=== PATIENT | male | born 1970 | race Caucasian/White ===

== ENCOUNTER 2024-06-01 17:47 | Emergency (ER) | payer OTHER ==
[2024-06-01 18:19] VITALS: RESP 20; BMI 38.0
[2024-06-01 19:01] LABS: BASO % 0.6 % (0-2.0); EOS % 1.1 % (0-4.5); HEMATOCRIT 47.2 % (35.4-49); HEMOGLOBIN 15.5 GM/dL (11.7-16.9); LYMPH % 19.5 % (8-40); MCH 28.8 pg (25.7-33.7); MCHC 32.8 g/dl (32.0-35.9); MEAN CELL VOLUME 87.9 fl (80-96); MEAN PLT VOLUME 8.4 fl (7.5-11.1); MONO % 3.9 % (3.8-10.2); NEUT % 74.9 % (42.8-82.8); PLATELET COUNT 197 10^3/uL (134-434); RBC 5.37 M/mm3 (4.00-5.60); RDW 14.9 % (11.9-15.9); WHITE BLOOD COUNT 8.2 K/mm3 (4.0-10.0)
[2024-06-01 19:18] LABS: INR 1.09 (0.83-1.09); PROTHROMBIN TIME (PATIENT) 12.5 SEC (9.7-13.0)
[2024-06-01 19:21] LABS: ACTIVATED PTT 37.9 SECONDS (25.2-36.5)
[2024-06-01 20:00] LABS: CHLORIDE 103 mmol/L (98-107); POTASSIUM 4.4 mmol/L (3.5-5.1); SODIUM 135 mmol/L (136-145)
[2024-06-01 20:02] LABS: ALBUMIN 3.3 g/dl (3.4-5.0); ANION GAP 7 mmol/L (4-13); BLOOD UREA NITROGEN 12.3 mg/dL (7-18); CALCIUM 9.2 mg/dL (8.5-10.1); CO2 25 mmol/L (21-32); MAGNESIUM 1.7 mg/dL (1.8-2.4)
[2024-06-01 20:05] LABS: SGPT/ALT 21 U/L (13-61)
[2024-06-01 20:06] LABS: CREATININE 0.9 mg/dL (0.55-1.3); SGOT/AST 10 U/L (15-37)
[2024-06-01 20:07] LABS: BILIRUBIN,TOTAL 0.2 mg/dL (0.2-1); TOT PROT 7.3 g/dl (6.4-8.2)
[2024-06-01 20:08] LABS: ALK PHOS 98 U/L (45-117)
[2024-06-01 20:30] LABS: GLUCOSE,RANDOM 415 mg/dL (74-106)
[2024-06-01 21:03] LABS: HIV INTERPRETATION NEGATIVE (NEGATIVE)
[2024-06-01] MEDS: SODIUM CHLORIDE 0.9% 500 ML INFUS.BAG IV ONE (21:05)
[2024-06-01] MEDS: INSULIN REGULAR HUMAN 100 UNITS/ML *VIAL IVPUSH ONE (21:08)
[2024-06-01] MEDS ORDERED: INSULIN REGULAR HUMAN 100 UNITS/ML *VIAL ONE (21:08)
[2024-06-01 21:14] LABS: PH,URINE 5.5 (5.0-8.0); URINE APPEARANCE CLEAR; URINE BILIRUBIN NEGATIVE (NEGATIVE); URINE COLOR YELLOW; URINE GLUCOSE (UA) 3+ (NEGATIVE); URINE KETONE 1+ (NEGATIVE); URINE LEUK ESTERASE NEGATIVE (NEGATIVE); URINE NITRITE NEGATIVE (NEGATIVE); URINE PROTEIN NEGATIVE (NEGATIVE); URINE UROBILINOGEN 0.2 mg/dL (0.2-1.0)
[2024-06-01 22:04] VITALS: BP 130/69; PULSE 82; TEMP 98.7
== END 2024-06-02 01:55 | disposition home or self-care (01) ==
LOC: JER 17:47
PROC: 3E033GC Introduction of Other Therapeutic Substance into Peripheral Vein, Percutaneous Approach (ICD-10-PCS; principal; 2024-06-01)
DX: K42.9 Umbilical hernia without obstruction or gangrene (principal)
CPT/HCPCS: 36415; 74177-TC; 80053; 81003; 82962; 83735; 84484; 85025; 85610; 85730; 86803; 87077; 87086; 87389; 93005; 93010; 96374; 99285-25; Q9967

== ENCOUNTER 2024-06-02 02:40 | Emergency (ER) | payer OTHER ==
[2024-06-02 02:46] VITALS: RESP 18; BMI 38.0
[2024-06-02 10:39] VITALS: BP 111/81; PULSE 78; TEMP 98.6
== END 2024-06-02 10:59 | disposition home or self-care (01) ==
LOC: JER 02:40
DX: K42.9 Umbilical hernia without obstruction or gangrene (principal)
CPT/HCPCS: 99283-25

== ENCOUNTER 2024-10-30 11:18 | Inpatient (IN) | payer OTHER ==
[2024-10-30 11:33] VITALS: BMI 36.9
[2024-10-30] MEDS ORDERED: ACETAMINOPHEN INJECTION 100 ML ONE (12:25)
[2024-10-30] MEDS: ACETAMINOPHEN 1000 MG/100 ML BAG IVPB ONE (12:25)
[2024-10-30 12:27] LABS: ABSOLUTE IMMATURE GRANULOCYTES 0.06 x10^3/uL (0.0-0.031); BASOPHILS # 0.03 x10^3/uL (0.01-0.08); EOSINOPHIL % 1.2 % (0.8-7.0); EOSINOPHILS # 0.07 x10^3/uL (0.04-0.54); HEMATOCRIT 48.7 % (40.1-51.0); MCHC 32.9 g/dl (32.3-36.5); MEAN CELL VOLUME 88.9 fl (79.0-92.2); MEAN PLT VOLUME 9.9 fl (9.4-12.4); MONOCYTE # 0.32 x10^3/uL (0.30-0.82); MONOCYTE % 5.4 % (5.3-12.2); PLATELET COUNT 163 x10^3/uL (163-337)
[2024-10-30 12:34] LABS: INR 1.45 (0.83-1.09)
[2024-10-30 12:36] LABS: ACTIVATED PTT 43.2 SECONDS (25.2-36.5)
[2024-10-30 13:01] LABS: POTASSIUM 4.2 mmol/L (3.5-5.1)
[2024-10-30 13:03] LABS: CALCIUM 9.2 mg/dL (8.5-10.1)
[2024-10-30 13:04] LABS: ALBUMIN 3.4 g/dl (3.4-5.0)
[2024-10-30 13:05] LABS: BLOOD UREA NITROGEN 14.6 mg/dL (7-18)
[2024-10-30 13:07] LABS: CREATININE 0.8 mg/dL (0.55-1.3)
[2024-10-30 13:08] LABS: TOT PROT 6.9 g/dl (6.4-8.2)
[2024-10-30 13:10] LABS: BILIRUBIN,TOTAL 0.5 mg/dL (0.2-1)
[2024-10-30] MEDS: predniSONE 20 MG TABLET (UD) PO ONE (17:18)
[2024-10-30] MEDS ORDERED: predniSONE 20 MG TABLET (UD) ONE (17:20)
[2024-10-30 18:15] LABS: EPI CELLS 7 /uL (0-25.1); HYALINE CASTS 0 /uL (0-3.1); PH,URINE 6.5 (5.0-8.0); URINE APPEARANCE CLEAR; URINE BACTERIA 47 /uL (0-1359); URINE BILIRUBIN NEGATIVE (NEGATIVE); URINE COLOR YELLOW; URINE GLUCOSE (UA) NEGATIVE (NEGATIVE); URINE KETONE TRACE (NEGATIVE); URINE LEUK ESTERASE 1+ (NEGATIVE); URINE NITRITE NEGATIVE (NEGATIVE); URINE PROTEIN 1+ (NEGATIVE); URINE RBC 13 /uL (0-23.9); URINE WBC 45 /uL (0-25.8)
[2024-10-30] MEDS ORDERED: LABETALOL HCL 20 MG/4 ML VIAL IVPUSH PRN ×2 (19:10→19:15)
[2024-10-30] MEDS: levETIRAcetam 500 MG TABLET (FP) PO SCH (21:24)
[2024-10-30] MEDS: INSULIN ASPART SLIDING SCALE (NOVOLOG) 1 VIAL SQ SCH (21:27)
[2024-10-30] MEDS: ASPIRIN 325 MG ENTERIC COATED TABLET (FP) PO ONE (21:43)
[2024-10-30] MEDS ORDERED: APIXABAN 5 MG TABLET PO SCH (22:00)
[2024-10-31] MEDS: INSULIN GLARGINE (LANTUS) 100 UNITS/ML UNITS SQ SCH (06:15)
[2024-10-31 07:50] LABS: HEMATOCRIT 48.9 % (40.1-51.0); MCHC 32.7 g/dl (32.3-36.5); MEAN CELL VOLUME 88.1 fl (79.0-92.2); MEAN PLT VOLUME 10.2 fl (9.4-12.4); PLATELET COUNT 192 x10^3/uL (163-337); RDW 12.9 % (12.2-16.1)
[2024-10-31 08:03] LABS: POTASSIUM 3.9 mmol/L (3.5-5.1)
[2024-10-31 08:05] LABS: CALCIUM 9.2 mg/dL (8.5-10.1)
[2024-10-31 08:06] LABS: ALBUMIN 3.5 g/dl (3.4-5.0); MAGNESIUM 1.7 mg/dL (1.8-2.4)
[2024-10-31 08:09] LABS: CREATININE 0.8 mg/dL (0.55-1.3); PHOSPHOROUS 2.6 mg/dL (2.5-4.9)
[2024-10-31 08:10] LABS: BILIRUBIN,TOTAL 0.6 mg/dL (0.2-1)
[2024-10-31] MEDS: ENOXAPARIN NA (PORCINE) 40 MG/0.4 ML DISP.SYRIN SQ SCH (09:44)
[2024-10-31] MEDS: ASPIRIN 81 MG CHEWABLE TABLETS PO SCH (09:45)
[2024-10-31] MEDS: predniSONE 20 MG TABLET (UD) PO SCH (09:45)
[2024-10-31] MEDS: MAGNESIUM 1GM/D5W - 1 GM/100 ML IVPB IVPB ONE (09:46)
[2024-10-31] MEDS: LOSARTAN POTASSIUM 25 MG TABLET PO SCH (09:46)
[2024-10-31] MEDS: AMIODARONE HCL 200 MG TABLET PO SCH (09:46)
[2024-10-31] MEDS ORDERED: PATIENT'S OWN MEDICATION (NON-FORMULARY) (Insulin Glargine,Hum.Rec.Anlog [Lantus Solostar] SQ SCH (10:00)
[2024-10-31] MEDS ORDERED: EZETIMIBE 10 MG TABLET (FP) PO SCH (10:45)
[2024-10-31] MEDS: ATORVASTATIN CA 80 MG TABLET (FP) PO SCH (21:05)
[2024-10-31] MEDS: APIXABAN 5 MG TABLET PO SCH (21:05)
[2024-10-31] MEDS: EZETIMIBE 10 MG TABLET (FP) PO SCH (21:05)
[2024-11-01 01:13] VITALS: RESP 18
[2024-11-01 08:00] LABS: HEMATOCRIT 49.8 % (40.1-51.0); HEMOGLOBIN 16.2 g/dL (13.7-17.5); MCHC 32.5 g/dl (32.3-36.5); MEAN CELL VOLUME 89.4 fl (79.0-92.2); MEAN PLT VOLUME 10.2 fl (9.4-12.4); PLATELET COUNT 180 x10^3/uL (163-337)
[2024-11-01 08:03] LABS: POTASSIUM 3.9 mmol/L (3.5-5.1)
[2024-11-01 08:05] LABS: CALCIUM 9.5 mg/dL (8.5-10.1)
[2024-11-01 08:06] LABS: MAGNESIUM 2.2 mg/dL (1.8-2.4)
[2024-11-01 08:07] LABS: BLOOD UREA NITROGEN 19.3 mg/dL (7-18)
[2024-11-01 08:10] LABS: CREATININE 0.9 mg/dL (0.55-1.3)
[2024-11-01 09:54] VITALS: BP 148/74; PULSE 88; TEMP 98.8
== END 2024-11-01 10:55 | disposition home or self-care (01) | DRG 65 ==
LOC: JER 11:18 → JERBED 16:45 → J4W 18:32
PROVIDERS: ADMIT Internal Medicine; ATTEND Internal Medicine
DX: I63.9 Cerebral infarction, unspecified (principal); I69.354 Hemiplegia and hemiparesis following cerebral infarction affecting left non-dominant side; E78.5 Hyperlipidemia, unspecified; I48.91 Unspecified atrial fibrillation; Z79.01 Long term (current) use of anticoagulants; G40.909 Epilepsy, unspecified, not intractable, without status epilepticus; E11.51 Type 2 diabetes mellitus with diabetic peripheral angiopathy without gangrene; E83.42 Hypomagnesemia; E11.42 Type 2 diabetes mellitus with diabetic polyneuropathy; G51.0 Bell's palsy; I25.10 Atherosclerotic heart disease of native coronary artery without angina pectoris
CPT/HCPCS: 36415; 70450-TC; 70551-TC; 71045-TC-FY; 80048; 80053; 80061; 81003; 82550; 82962; 83036; 83735; 84100; 84484; 85025; 85027; 85610; 85730; 86618; 86850; 86900; 86901; 93005; 93010; 93306-TC; 93880-TC; 97116-GP; 97162-GP; 99285-25; J0131

== ENCOUNTER 2024-12-10 09:26 | Emergency (ER) | payer OTHER ==
[2024-12-10 10:02] VITALS: RESP 20; TEMP 98.9; BMI 35.4
[2024-12-10] MEDS ORDERED: levETIRAcetam 500 MG TABLET (FP) PO ONE (11:17)
[2024-12-10] MEDS: levETIRAcetam 500 MG TABLET (FP) PO ONE (11:25)
[2024-12-10 12:16] LABS: ABSOLUTE IMMATURE GRANULOCYTES 0.17 x10^3/uL (0.0-0.031); BASOPHILS # 0.04 x10^3/uL (0.01-0.08); EOSINOPHIL % 0.5 % (0.8-7.0); EOSINOPHILS # 0.05 x10^3/uL (0.04-0.54); HEMATOCRIT 51.4 % (40.1-51.0); MCHC 33.1 g/dl (32.3-36.5); MEAN CELL VOLUME 88.5 fl (79.0-92.2); MEAN PLT VOLUME 10.4 fl (9.4-12.4); MONOCYTE # 0.39 x10^3/uL (0.30-0.82); MONOCYTE % 4.3 % (5.3-12.2); PLATELET COUNT 175 x10^3/uL (163-337); RDW 13.3 % (12.2-16.1)
[2024-12-10 12:29] LABS: INR 1.12 (0.83-1.09); PROTHROMBIN TIME (PATIENT) 12.2 SEC (9.7-13.0)
[2024-12-10 12:31] LABS: ACTIVATED PTT 41.5 SECONDS (25.2-36.5)
[2024-12-10 12:45] LABS: ALBUMIN 3.9 g/dl (3.4-5.0); CALCIUM 9.5 mg/dL (8.5-10.1)
[2024-12-10 12:46] LABS: BLOOD UREA NITROGEN 14.5 mg/dL (7-18)
[2024-12-10 12:48] LABS: CREATININE 0.9 mg/dL (0.55-1.3)
[2024-12-10 12:50] LABS: BILIRUBIN,TOTAL 0.4 mg/dL (0.2-1); TOT PROT 7.5 g/dl (6.4-8.2)
[2024-12-10 13:02] LABS: PH,URINE 5.5 (5.0-8.0); URINE APPEARANCE CLEAR; URINE BILIRUBIN NEGATIVE (NEGATIVE); URINE COLOR YELLOW; URINE GLUCOSE (UA) NEGATIVE (NEGATIVE); URINE KETONE NEGATIVE (NEGATIVE); URINE LEUK ESTERASE NEGATIVE (NEGATIVE); URINE NITRITE NEGATIVE (NEGATIVE); URINE PROTEIN TRACE (NEGATIVE); URINE UROBILINOGEN 0.2 mg/dL (0.2-1.0)
[2024-12-10] MEDS ORDERED: ACETAMINOPHEN 325 MG TABLET (FP) ONE (15:12)
[2024-12-10] MEDS ORDERED: KETOROLAC TROMETHAMINE 15 MG/ML VIAL ONE (15:12)
[2024-12-10] MEDS: ACETAMINOPHEN 500 MG TABLET (FP) PO ONE (15:23)
[2024-12-10] MEDS: KETOROLAC TROMETHAMINE 15 MG/ML VIAL IVPUSH ONE (15:23)
[2024-12-10 18:28] VITALS: BP 126/76; PULSE 78
== END 2024-12-10 18:28 | disposition home or self-care (01) ==
LOC: JER 09:26
PROC: 3E0333Z Introduction of Anti-inflammatory into Peripheral Vein, Percutaneous Approach (ICD-10-PCS; principal; 2024-12-10)
DX: G40.909 Epilepsy, unspecified, not intractable, without status epilepticus (principal); S00.511A Abrasion of lip, initial encounter; M54.2 Cervicalgia; R94.31 Abnormal electrocardiogram [ECG] [EKG]; T42.6X6A Underdosing of other antiepileptic and sedative-hypnotic drugs, initial encounter; Z91.148 Patient's other noncompliance with medication regimen for other reason; X58.XXXA Exposure to other specified factors, initial encounter
CPT/HCPCS: 0241U-QW; 36415; 70450-TC; 71045-TC-FY; 72125-TC; 80053; 80177; 81003; 82962; 84484; 85025; 85610; 85730; 86850; 86900; 86901; 87086; 93005; 93010; 96374; 99285-25